=== PATIENT | male | born 1990 | race Two or more races ===

== ENCOUNTER 2024-06-20 00:53 | Emergency (ER) | payer OTHER, MEDICAID ==
[~2024-06-20] VITALS: Ht 172.7 cm; Wt 79.8 kg
[2024-06-20] MEDS ORDERED: HYDROCODONE/APAP 5-325MG TABLET ONE (01:36)
[2024-06-20] MEDS ORDERED: CYCLOBENZAPRINE HCL 10 MG TABLET ONE (01:36)
[2024-06-20] MEDS: CYCLOBENZAPRINE HCL 10 MG TABLET PO ONE (01:39)
[2024-06-20] MEDS: HYDROCODONE/APAP 5-325MG TABLET PO ONE (01:40)
[2024-06-20] MEDS ORDERED: NAPR-1009 PO (04:13)
[2024-06-20] MEDS ORDERED: CYCL5TAB PO (04:13)
[2024-06-20] MEDS ORDERED: HYDR-4209 PO (04:13)
[2024-06-20 04:21] VITALS: BP 134/84; TEMP 98; O2SAT 99
== END 2024-06-20 04:21 | disposition home or self-care (01) ==
LOC: ER 01:10
DX: S06.0X0A Concussion without loss of consciousness, initial encounter (principal); M54.42 Lumbago with sciatica, left side; M46.1 Sacroiliitis, not elsewhere classified; F17.210 Nicotine dependence, cigarettes, uncomplicated; M79.652 Pain in left thigh; R03.0 Elevated blood-pressure reading, without diagnosis of hypertension; V43.52XA Car driver injured in collision with other type car in traffic accident, initial encounter; Y93.89 Activity, other specified; Y92.488 Other paved roadways as the place of occurrence of the external cause; Y99.8 Other external cause status
CPT/HCPCS: 70450; 72131; 72192; 73551; A4606; A4663